=== PATIENT | female | born 1995 | race Caucasian/White ===

== ENCOUNTER 2017-01-05 18:38 | Emergency (ER) | payer BC ==
[2017-01-05 19:40] VITALS: BP 122/67
--- NOTE | 2017-01-05 19:56 | UC ---
Complaint Female HPI - HPI Summary HPI Summary: burning with urination x 2 days no fever no chills, no flank pain , + urgency and frequency - History Of Current Complaint Chief Complaint: UCGU Stated Complaint: URINARY Time Seen by Provider: 01/05/17 19:51 Hx Obtained From: Patient Hx Last Menstrual Period: 12/15/16 ?: No Onset/Duration: Gradual Onset, Lasting Days - 2, Still Present Timing: Constant Severity Initially: Moderate Severity Currently: Moderate Character: Burning Aggravating Factor(s): Urination Alleviating Factor(s): Nothing Associated Signs And Symptoms: Negative: Fever, Back Pain, Vaginal Bleeding/ Discharge, Vaginal Discharge, Nausea, Vomiting(# Of Episodes =), Genital Swelling, Genital Blisters - Allergies/Home Medications Allergies/Adverse Reactions: Allergies Allergy/AdvReac Type Severity Reaction Status Date / Time Cefadroxil [From Durice] Allergy Unknown Verified 01/05/17 19:35 Reaction Details PMH/Surg Hx/FS Hx/Imm Hx Previously Healthy: Yes - Surgical History Surgical History: None - Family History Known Family History: Positive: Respiratory Disease - asthma - Social History Alcohol Use: Weekly Substance Use Type: None Smoking Status (MU): Never Smoked Tobacco Review of Systems Constitutional: Negative Skin: Negative Eyes: Negative ENT: Negative Respiratory: Negative Cardiovascular: Negative Gastrointestinal: Negative Genitourinary: Dysuria, Frequency, Urgency Motor: Negative Neurovascular: Negative Musculoskeletal: Negative Neurological: Negative Psychological: Negative Is Patient Immunocompromised?: No All Other Systems Reviewed And Are Negative: Yes Physical Exam Triage Information Reviewed: Yes Appearance: Well-Appearing, No Pain Distress, Well-Nourished Vital Signs: Initial Vital Signs Temp 99.3 F 01/05/17 19:36 Pulse 91 01/05/17 19:36 Resp 14 01/05/17 19:36 BP 122/67 01/05/17 19:36 Pulse Ox 100 01/05/17 19:36 Vital Signs Reviewed: Yes Eyes: Positive: Conjunctiva Clear ENT: Positive: Normal ENT inspection, Hearing grossly normal, Pharynx normal Neck: Positive: Supple, Nontender, No Lymphadenopathy Respiratory: Positive: Chest non-tender, Lungs clear, Normal breath sounds Cardiovascular: Positive: RRR, No Murmur, Pulses Normal Abdominal Exam: Normal Abdomen Description: Positive: Nontender, Soft. Negative: CVA Tenderness (R), CVA Tenderness (L), Distended, Guarding Bowel Sounds: Positive: Present Complaint Female Dx - Differential Dx/Diagnosis Provider Diagnoses: uti Discharge - Discharge Plan Condition: Stable Disposition: HOME Prescriptions: Sulfamethox/Trimethoprim DS* [Bactrim DS 800/160 TAB*] 1 tab PO BID #14 tab Patient Education Materials: Urinary Tract Infection in Women (ED) Referrals: Non Staff,Doctor [Primary Care Provider] - 7 Days
== END 2017-01-05 19:57 | disposition home or self-care (01) ==
LOC: UCCORT 18:38
DX: N39.0 Urinary tract infection, site not specified (principal); B96.20 Unspecified Escherichia coli [E. coli] as the cause of diseases classified elsewhere; Z88.1 Allergy status to other antibiotic agents
CPT/HCPCS: 81003; 87077; 87086; 87186; 99212; G0463

== ENCOUNTER 2018-01-23 13:33 | Emergency (ER) | payer BC ==
[2018-01-23 14:14] VITALS: BP 112/66
--- NOTE | 2018-01-23 14:39 | UC ---
Complaint Female HPI - HPI Summary HPI Summary: Pt c/o sudden onset of urinary symptoms of frequency, urgency and dysuria X 3 days. Pt and partner were treated for chlamydia on 01/10 and again 6 days later. - History Of Current Complaint Chief Complaint: UCGU Stated Complaint: URINARY Time Seen by Provider: 01/23/18 14:31 Hx Obtained From: Patient Hx Last Menstrual Period: 12/15/16 ?: No Onset/Duration: Sudden Onset, Lasting Days Timing: Constant Severity Initially: Mild Severity Currently: Mild Pain Intensity: 3 Character: Sharp, Dull, Burning Aggravating Factor(s): Urination Associated Signs And Symptoms: Positive: Negative - Risk Factors Ectopic Risk Factor: Negative Ovarian Torsion Risk Factor: Negative - Allergies/Home Medications Allergies/Adverse Reactions: Allergies Allergy/AdvReac Type Severity Reaction Status Date / Time cefadroxil Allergy Unknown Verified 01/23/18 14:14 Reaction Details Home Medications: Home Medications Ibuprofen TAB* [Advil TAB*] 400 mg PO Q6H PRN 01/23/18 [History Confirmed ] Pumpkin Seed Extract/Soy Germ [Azo Bladder Control Capsule] 1 cap PO ONCE [History Confirmed 01/23/18] PMH/Surg Hx/FS Hx/Imm Hx Previously Healthy: Yes - Surgical History Surgical History: None - Family History Known Family History: Positive: Respiratory Disease - asthma - Social History Occupation: Student Lives: Dormitory/Roommates Alcohol Use: Occasionally Substance Use Type: Marijuana Substance Use Comment - Amount & Last Used: socially Smoking Status (MU): Never Smoked Tobacco Have You Smoked in the Last Year: No - Immunization History Vaccination Up to Date: Yes Review of Systems Constitutional: Negative Skin: Negative Eyes: Negative ENT: Negative Respiratory: Negative Cardiovascular: Negative Gastrointestinal: Negative Genitourinary: Dysuria, Frequency, Urgency Motor: Negative Neurovascular: Negative Musculoskeletal: Negative Neurological: Negative Psychological: Negative Is Patient Immunocompromised?: No All Other Systems Reviewed And Are Negative: Yes Physical Exam Triage Information Reviewed: Yes Appearance: Well-Appearing Vital Signs: Initial Vital Signs Temp 98.2 F 01/23/18 14:07 Pulse 88 01/23/18 14:07 Resp 13 01/23/18 14:07 BP 112/66 01/23/18 14:07 Pulse Ox 98 01/23/18 14:07 Vital Signs Reviewed: Yes Eye Exam: Normal ENT Exam: Normal Dental Exam: Normal Neck exam: Normal Respiratory Exam: Normal Cardiovascular Exam: Normal Abdomen Description: Positive: Other: - suprapubic tenderness Musculoskeletal Exam: Normal Neurological Exam: Normal Psychological Exam: Normal Skin Exam: Normal Complaint Female Dx - Differential Dx/Diagnosis Differential Diagnosis/HQI/PQRI: Sexually Transmitted Disease, Urinary Tract Infection Provider Diagnoses: UTI Discharge - Sign-Out/Discharge Documenting (check all that apply): Patient Departure All imaging exams completed and their final reports reviewed: No Studies - Discharge Plan Condition: Stable Disposition: HOME Prescriptions: Sulfamethox/Trimethoprim DS* [Bactrim DS 800/160 TAB*] 1 tab PO Q12H #14 tab Patient Education Materials: Urinary Tract Infection in Women (ED) Referrals: [facility] [Outside] - If Needed No Primary Care Phys,NOPCP [Primary Care Provider] - - Billing Disposition and Condition Condition: STABLE Disposition: Home
== END 2018-01-23 14:50 | disposition home or self-care (01) ==
LOC: UCCORT 13:33
DX: N39.0 Urinary tract infection, site not specified (principal); Z88.1 Allergy status to other antibiotic agents
CPT/HCPCS: 81003; 87077; 87086; 87491; 87591; 99212; G0463

== ENCOUNTER 2018-02-14 17:20 | Emergency (ER) | payer BC ==
[2018-02-14 18:19] VITALS: BP 106/60
--- NOTE | 2018-02-14 18:33 | UC ---
Complaint Female HPI - HPI Summary HPI Summary: 22 yo female presents with urinary burning, frequency, and bladder pressure since yesterday. She tells me that she had sexual intercourse 2 days ago and forgot to urinate after sex. She says whenever she forgets to do this, she always gets a UTI. Has had UTIs in the past and this feels the same. Denies fever, chills, abdominal pain, n/v/d/c, flank pain, vaginal discharge/bleeding. - History Of Current Complaint Chief Complaint: UCGU Stated Complaint: URINARY Time Seen by Provider: 02/14/18 18:24 Hx Obtained From: Patient Hx Last Menstrual Period: mirena Onset/Duration: Sudden Onset Timing: Constant Severity Initially: Moderate Severity Currently: Moderate Pain Intensity: 5 Pain Scale Used: 0-10 Numeric - Allergies/Home Medications Allergies/Adverse Reactions: Allergies Allergy/AdvReac Type Severity Reaction Status Date / Time cefadroxil Allergy Unknown Verified 02/14/18 18:07 Reaction Details PMH/Surg Hx/FS Hx/Imm Hx - Additional Past Medical History Additional PMH: None - Surgical History Surgical History: Yes Surgery Procedure, Year, and Place: 2016-- - Family History Known Family History: Positive: Respiratory Disease - asthma - Social History Occupation: Student Lives: Dormitory/Roommates Alcohol Use: Weekly Substance Use Type: Marijuana Substance Use Comment - Amount & Last Used: socially Smoking Status (MU): Never Smoked Tobacco Have You Smoked in the Last Year: No - Immunization History Vaccination Up to Date: Yes Review of Systems Constitutional: Negative Skin: Negative Respiratory: Negative Cardiovascular: Negative Gastrointestinal: Negative Genitourinary: Dysuria, Frequency Neurovascular: Negative Neurological: Negative Psychological: Negative All Other Systems Reviewed And Are Negative: Yes Physical Exam - Summary Physical Exam Summary: GENERAL: NAD. WDWN. No pain distress. SKIN: No rashes, sores, lesions, or open wounds. NECK: Supple. Nontender. No lymphadenopathy. CHEST: CTAB. No r/r/w. No accessory muscle use. Breathing comfortably and in no distress. CV: RRR. Without m/r/g. Pulses intact. Cap refill <2seconds ABDOMEN: Soft. NTTP. No distention or guarding. No CVA tenderness. Bowel sounds present NEURO: Alert. PSYCH: Age appropriate behavior. Triage Information Reviewed: Yes Vital Signs: Initial Vital Signs Temp 98.2 F 02/14/18 18:05 Pulse 61 02/14/18 18:05 Resp 20 02/14/18 18:05 BP 106/60 02/14/18 18:05 Pulse Ox 99 02/14/18 18:05 Laboratory Tests 02/14/18 18:27 POC Urine Color Other POC Urine Clarity Cloudy POC Urine pH 6.0 POC Ur Specif [place] >= 1.030 POC Urine Protein 3+ A POC Ur Glucose (UA) Negative POC Urine Ketones Trace A POC Urine Blood 2+ A POC Urine Nitrite Negative POC Urine Bilirubin Negative POC Urine Urobilinogen 1.0 POC U Leukocyte Esteras 1+ A Vital Signs Reviewed: Yes Complaint Female Dx - Course Course Of Treatment: UTI - given that she was on Bactrim less than 30days ago for a UTI, will treat with Cipro and send urine for culture. - Differential Dx/Diagnosis Provider Diagnoses: UTI Discharge - Sign-Out/Discharge Documenting (check all that apply): Patient Departure All imaging exams completed and their final reports reviewed: No Studies - Discharge Plan Condition: Stable Disposition: HOME Prescriptions: Ciprofloxacin TAB* [Cipro 500 MG TAB*] 500 mg PO BID #10 tab Patient Education Materials: Urinary Tract Infection in Women (DC) Referrals: No Primary Care Phys,NOPCP [Primary Care Provider] - Additional Instructions: If you develop a fever, shortness of breath, chest pain, new or worsening symptoms - please call your PCP or go to the ED. - Billing Disposition and Condition Condition: STABLE Disposition: Home
== END 2018-02-14 18:44 | disposition home or self-care (01) ==
LOC: UCCORT 17:20
DX: N39.0 Urinary tract infection, site not specified (principal); F12.90 Cannabis use, unspecified, uncomplicated; Z88.1 Allergy status to other antibiotic agents
CPT/HCPCS: 81003; 87077; 87086; 99212; G0463